=== PATIENT | male | born 1960 | race Caucasian/White ===

== ENCOUNTER 2022-10-12 11:49 | Outpatient (CLI) | payer MEDICAID, SELFPAY | END 2022-10-12 11:50 | disposition home or self-care (01) | PROVIDERS: PCP Family Medicine; Visit Provider Family Medicine | DX: M06.9 Rheumatoid arthritis, unspecified (principal); I63.9 Cerebral infarction, unspecified; Z12.5 Encounter for screening for malignant neoplasm of prostate | CPT/HCPCS: 80048; 80061; 84153; 84460; 85025 ==

== ENCOUNTER 2023-01-14 09:58 | Outpatient (CLI) | payer MEDICAID, SELFPAY | END 2023-01-14 09:59 | disposition home or self-care (01) | PROVIDERS: PCP Family Medicine; Visit Provider Family Medicine | DX: M06.9 Rheumatoid arthritis, unspecified (principal); J18.9 Pneumonia, unspecified organism | CPT/HCPCS: 80048; 85025 ==

== ENCOUNTER 2023-02-26 10:24 | Outpatient (CLI) | payer MEDICAID, SELFPAY ==
--- NOTE | 2023-02-26 10:30 | PE_ITS ---
[facility] [address] [facility] [address] Phone:?[phone] Fax:?[phone] Referring Physician Information: Hadier Mcmullen M.D. [address] [facility] [address] Phone:?[phone] Fax:?[phone] Patient:?Haider Robison D.O.B:?1960 Sex:?Male Phone:?[phone] [facility] MRN:?[id number] Exam Date:?02/26/2023 EXAM: PET/CT SCAN MID-ORBITS TO PROXIMAL THIGHS CLINICAL INFORMATION: Trauma with chest CT 01/20/2023 and 02/12/2023 demonstrating multiple left-sided rib fractures, 26 x 19 mm mass like density left upper lobe with additional subcentimeter left-sided pulmonary nodules and sclerotic bone lesions. Patient with history of rheumatoid arthritis. COMPARISON: Chest CT 01/20/2023 and 02/12/2023 [facility]. TECHNICAL INFORMATION: Spiral acquisition of data was obtained from the mid orbits to the proximal thighs with reconstruction of 3.75 mm thick images at 3.[address] data was used for attenuation correction. PET scanning was performed through the same anatomic range 50 minutes following administration of 12.25 mCi of 18-FDG delivered intravenously. The patient's glucose at the time of the injection was 99 mg/dL. PET, CT and PET/CT fusion images are interpreted using a computer viewing workstation. INTERPRETATION: Head and Neck: No abnormal radiotracer uptake, mass or adenopathy. Chest: In the anterior subpleural left upper lobe 72 x 59 x 58 mm area of consolidation with some traversing air bronchograms, at site of previous identified 29 x 16 mm masslike subpleural density identified on chest CT 01/20/2023, SUV max 10.95, highly concerning for possible bronchogenic carcinoma in adjacent pneumonitis. Stable appearance of previous identified subcentimeter left upper lobe pulmonary nodules image 82 SUV max 1.25. Additional left upper lobe pulmonary nodules previously identified, not well visualized currently, possibly due to increasing consolidation and pleural effusion. 2 suspected left suprahilar nodes, with prominent FDG uptake, image 102, SUV max 7.24. 11 mm left infrahilar node image 111, SUV max 8.13, along with 14 mm subcarinal node, SUV max 6.1, image 111. 2 additional pretracheal lymph nodes measuring approximately 11 mm, image 100, SUV max 5.99. Mild enlargement of the dependent left pleural effusion since 01/20/2023. Abdomen, Pelvis and Proximal Thighs: No focal liver lesion. No bile duct dilatation. The pancreas, adrenal glands, and spleen are unremarkable. No gastric or small bowel abnormality. Calcification of the abdominal aorta without aneurysm. No pathologic mesenteric or retroperitoneal adenopathy. No pelvic adenopathy, hernia, mass or fluid collection. Prostamegaly with central gland calcification. MUSCULOSKELETAL: Several sclerotic lesions of the sacrum, bilateral iliac bones, left aspect L1 vertebral body ( image 173, SUV max 14.49). Additional sclerotic lesion of the right aspect of the sternum image 99 and 84, SUV max 6.51. Several small sclerotic foci with FDG uptake involving right second through fifth ribs, SUV max 4.44. Multiple fractures of the lateral fourth through seventh and posterior fifth through seventh left ribs related to recent fall. Large bilateral shoulder joint effusion with lytic appearance of the humeral head and pathologic fracture right humeral head, unchanged, related to rheumatoid arthritis. CONCLUSION: 1. Area of consolidation measuring approximately 72 x 59 x 58 mm anterior left upper lobe at site of previous identified 26 x 19 mm left upper lobe mass. SUV max 10.95, suspicious for primary bronchogenic carcinoma and pneumonitis. Increasing size of dependent left pleural effusion since 02/12/2023. Several left hilar, pretracheal and subcarinal enlarged, FDG avid lymph nodes, suspicious for liyah metastatic involvement. Several sclerotic lesions involving the sternum, right ribs, L1 vertebrae, right sacrum and bilateral iliac bones suspicious for metastatic disease. Electronically signed on 03/03/2023 10:53:00 AM by Kelechi Kelly M.D.
== END 2023-02-26 10:25 | disposition home or self-care (01) ==
LOC: RAD 10:27
PROVIDERS: PCP Family Medicine; Visit Provider Family Medicine
DX: R91.8 Other nonspecific abnormal finding of lung field (principal)
CPT/HCPCS: 78815; A9552

== ENCOUNTER 2023-03-08 20:11 | Outpatient (CLI) | payer MEDICAID, SELFPAY ==
--- NOTE | 2023-03-16 12:27 | W.PM.SLEEP ---
Sleep Study Details Details Interpreting Provider: Sarah Date of Sleep Study: 03/08/23 Sleep Study Details: STUDY TYPE:? Hospital-based without CPAP ? BMI:? 26.7 ORDERING PROVIDER:? Benedict INDICATION:? Concerns about sleep apnea ? SLEEP SUMMARY:? Total sleep time 3:20 a.m. 9.5, arousal index 11.1 RESPIRATORY SUMMARY:? Mean oxygen awake 90 asleep 90 minimum 81 49.8 minutes oxygen between 80 and 88% AHI 0.7, RDI 3.5 supine REM AHI and nonsupine REM AHI or 0 PERIODIC LIMB MOVEMENTS OF SLEEP:? None were observed CARDIAC:? Awake 97, asleep 91 a few possible PVCs were noted IMPRESSION:? This study is not demonstrate clinically significant obstructive sleep apnea. However it does demonstrate clinically significant hypoxia with 49.8 minutes oxygen between 80 and 88% RECOMMENDATION: This patient would be a candidate for nocturnal oxygen.
== END 2023-03-08 20:12 | disposition home or self-care (01) ==
LOC: SLEEP 20:11
PROVIDERS: PCP Family Medicine; Visit Provider Family Medicine
DX: R09.02 Hypoxemia (principal)
CPT/HCPCS: 95810